=== PATIENT | female | born 1975 ===

== ENCOUNTER 2020-08-13 16:30 | Emergency (ER) | payer OTHER, MEDICAID, SELFPAY ==
[2020-08-13 16:43] VITALS: BP 159/89; PULSE 101; RESP 17; TEMP 36.6; O2SAT 100
--- NOTE | 2020-08-13 16:47 | DI.RAD.S_ITS ---
PROCEDURE: XR CHEST 2V INDICATIONS: covid precautions TECHNIQUE: 2 views of the chest were acquired. COMPARISON: None. FINDINGS: Surgical changes and devices: None. Lungs and pleura: Lungs are clear. No pleural effusions or pneumothorax. Mediastinum: Mediastinal contours are normal. Heart size is normal. Bones and chest wall: No suspicious bony abnormalities. Soft tissues appear unremarkable. IMPRESSION: No acute cardiopulmonary pathology. Dictated by: Anupam Fenton M.D. on 08/13/2020 at 17:03 Approved by: Anupam Fenton M.D. on 08/13/2020 at 17:03
[2020-08-13 17:07] LABS: COVID19 -Nasal RAPID Negative (Negative)
[2020-08-13 20:33] VITALS: BP 163/99; PULSE 81; RESP 14; O2SAT 99
--- NOTE | 2020-08-13 21:08 | ED_ITS ---
HPI - General Adult General Chief complaint: Shortness of Breath/Dyspnea Stated complaint: back pain, difficulty breathing, fatigue x 5days Time Seen by Provider: 08/13/20 20:41 Source: patient Mode of arrival: Ambulatory Limitations: no limitations History of Present Illness HPI narrative: This is a 45-year-old female comes emergency department with complaint of left-sided thoracic pain just behind the left scapula. Patient states been going on for about a week. She waited to follow up with primary care and today they told her she should come to the ER. She has not had fevers, no chills but she has been tired. She denies any chest pain or pressure. She denies any shortness breath. She denies any nausea, no vomiting. No other GI or urinary symptoms. She denies any swelling in her extremities. Patient states that she notices it when she takes a breath but it is not painful or pleuritic. She woke up with the discomfort about a week ago, she tried to rub against the corner of her door frame but did not resolve her symptoms. She states she has had a history of pleurisy in the past. She does take gabapentin, nortriptyline and is on buprenorphine for chronic pain. She describes this as joint discomfort and has had workups for autoimmune diseases but no definitive diagnosis. She has had a partial hysterectomy and oophorectomy for a ovarian torsion. She denies any allergies to medications. She states she does have ibuprofen up to 600 mg but has not been taking any at home. She denies any known cardiac, pulmonary or embolic history. She states her mother has osteo arthritis. Related Data Home Medications Medication Instructions Recorded Confirmed buprenorphine 1 patch TRANSDERMAL WEEKLY 08/13/20 08/13/20 gabapentin 900 mg PO TID 08/13/20 08/13/20 nortriptyline 25 mg PO DAILY 08/13/20 08/13/20 Allergies Allergy/AdvReac Type Severity Reaction Status Date / Time No Known Drug Allergies Allergy Verified 08/13/20 16:46 Review of Systems Review of Systems ROS Unobtainable: All systems reviewed & are unremarkable except as noted in HPI and below Patient History Social History Smoking Status: Current every day smoker Smoking Status: Current every day smoker alcohol intake frequency: other Substance Use Type: marijuana Exam Narrative Exam Narrative: GENERAL: Alert and oriented x three, thin, well-appearing female in mild distress. HEENT: Head normocephalic, atraumatic, EOMI, pupils reactive, face symmetric, moist mucous membranes NECK: Supple, full range of motion CARDIOVASCULAR: Regular rate and rhythm without murmurs, rubs or gallops. RESPIRATORY: Breath sounds equal bilaterally, no wheezes rales or rhonchi. ABDOMEN: Soft, nontender. Normoactive bowel sounds all 4 quadrants. No guarding or rebound, rigidity, no mass : No CVA tenderness BACK: No cervical, thoracic or lumbar vertebral point tenderness. Patient has normal range of motion. Patient's gait is normal. Patient is back is non- tender. No swelling, erythema or other changes noted over the left scapula. EXTREMITIES: Normal range of motion, no clubbing or edema. Neurovascularly intact NEUROLOGICAL: Cranial nerves II through XII grossly intact. Moving all extremities SKIN: Warm, dry, no petechiae, no rashes or lesions. Initial Vital Signs Initial Vital Signs: Vital Signs Temperature 97.9 F 08/13/20 16:43 Pulse Rate 101 H 08/13/20 16:43 Respiratory Rate 17 08/13/20 16:43 Blood Pressure 159/89 H 08/13/20 16:43 Pulse Oximetry 100 08/13/20 16:43 Course Orders Ordered: ED Orders 08/13/20 20:30 EKG-12 Lead Routine Vital Signs Vital signs: Vital Signs - 8 hr 08/13/20 20:33 08/13/20 21:29 Pulse Rate 81 83 Respiratory Rate 14 14 Blood Pressure 163/99 H 151/100 H Pulse Oximetry 99 99 Medical Decision Making Lab Data Labs: Lab Results 08/13/20 Range/Units 16:40 SARS-CoV-2 (PCR) Negative (Negative) Imaging Data Chest x-ray: Radiologist's Impression: [address] [id number] ReportSigned Patient: THOMAS MARIER#: [id number]: 1975Acct:[id number]/Sex: 45 / FDate of Service: 08/13/20Loc: EDAccession Number: [id number] Procedure: XR chest 2V Ordering Provider: Lanker,Jorge D.O. PROCEDURE: XR CHEST 2V INDICATIONS: covid precautions TECHNIQUE: 2 views of the chest were acquired. COMPARISON: None. FINDINGS: Surgical changes and devices: None. Lungs and pleura: Lungs are clear. No pleural effusions or pneumothorax. Mediastinum: Mediastinal contours are normal. Heart size is normal. Bones and chest wall: No suspicious bony abnormalities. Soft tissues appear unremarkable. IMPRESSION: No acute cardiopulmonary pathology. Dictated by: Anupam Fenton M.D. on 08/13/2020 at 17:03 Approved by: Anupam Fenton M.D. on 08/13/2020 at 17:03 ECG Data Attestation: I personally reviewed and interpreted this ECG as follows: Interpretation: Sinus rhythm rate of 72 LA 153 QRS of 91 and QTC 391. No acute ST changes noted. MDM Narrative Medical decision making narrative: 45 year old female with complaint of left scapular pain x 1 week. Patient has normal EKG and CXR and negative covid. Patient pain is not clearly reproducible but is improved with ibuprofen. No s uspicious cardiac, pulmonary embolic risk factors. Discharge Plan Departure Patient Disposition: Home Clinical Impression: Back pain, thoracic Qualifiers: Chronicity: acute Back pain laterality: left Qualified Code(s): M54.6 - Pain in thoracic spine Instructions: DI for Thoracic Back Pain Activity Restrictions/Additional Instructions: Follow up with primary care in the next week for recheck if not improving Take your ibuprofen 600mg every 6 hours as needed for pain. Continue your home medications as prescribed. Return to ER for fevers, lightheadedness or passing out, new or worsening chest pain, new shortness of breath, persistent vomiting, new redness swelling or other changes or other new or concerning symptoms. Prescriptions: No Action nortriptyline 25 mg capsule 25 mg PO DAILY RF: 0 gabapentin 300 mg capsule 900 mg PO TID RF: 0 buprenorphine 7.5 mcg/hour patch weekly 1 patch transdermal WEEKLY RF: 0
[2020-08-13 21:29] VITALS: BP 151/100; PULSE 83; RESP 14; O2SAT 99
== END 2020-08-13 21:31 | disposition home or self-care (01) ==
PROVIDERS: Emergency Medicine; Emergency Provider Emergency Medicine
DX: M54.6 Pain in thoracic spine (principal); Z20.822 Contact with and (suspected) exposure to COVID-19
CPT/HCPCS: 71046; 87635; 93005; 99283; 99284; C9803